=== PATIENT | female | born 1960 ===

== ENCOUNTER 2021-04-27 08:07 | Day surgery (SDC) | payer OTHER ==
[~2021-04-27 08:07] MED LIST: METFORMIN HCL500 M3 PO; VERELAN120 MG PO
== END 2021-04-27 16:35 | disposition home or self-care (01) ==
LOC: CIR.AMB 08:07
PROVIDERS: ATTEND Colon & Rectal Surgery
DX: K64.8 Other hemorrhoids (principal); K64.4 Residual hemorrhoidal skin tags; Z20.822 Contact with and (suspected) exposure to COVID-19